=== PATIENT | female | born 1940 | race African-American/Black ===

== ENCOUNTER 2017-04-14 13:41 | Emergency (ER) | payer MEDICARE, OTHER ==
[2017-04-14] MEDS ORDERED: HYDRALAZINE HCL 50 MG TABLET PO ONE (14:30)
--- NOTE | 2017-04-14 14:37 | ER Document Report ---
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 It was 180s over 90s in the office. In addition, she has had intermittent tingling down bilateral legs for the past 3 years. She takes her blood pressure medications as prescribed and is due to take her afternoon hydralazine dose. Patient denies chest pain, shortness of breath, nausea, vomiting, back pain, abdominal pain, difficulty walking, injury, fevers, rash, headache, focal weakness or blurry vision. TRAVEL OUTSIDE OF THE [place] IN LAST 30 DAYS: No - Related Data Allergies/Adverse Reactions: No Known Allergies Allergy (Verified 09/26/13 09:14) Past Medical History - General Information source: Patient - Social History Smoking Status: Former Smoker Family History: Reviewed & Not Pertinent Patient has suicidal ideation: No Patient has homicidal ideation: No - Past Medical History Cardiac Medical History: Reports: Hx Coronary Artery Disease, Hx Heart Attack, Hx Hypercholesterolemia, Hx Hypertension Endocrine Medical History: Reports: Hx Diabetes Mellitus Type 2 Renal/ Medical History: Reports: Hx End Stage Renal Disease. Denies: Hx Peritoneal Dialysis Psychiatric Medical History: Denies: Hx Depression Past Surgical History: Reports: Hx Hysterectomy, Hx Orthopedic Surgery - cervical fusion - Immunizations Hx Diphtheria, Pertussis, Tetanus Vaccination: Yes Review of Systems - Review of Systems Notes: REVIEW OF SYSTEMS: CONSTITUTIONAL: -fevers, -chills EENT: -eye pain, -difficulty swallowing, -nasal congestion CARDIOVASCULAR: -chest pain, -syncope. RESPIRATORY: -cough, -SOB GASTROINTESTINAL: -abdominal pain, -nausea, -vomiting, -diarrhea GENITOURINARY: -dysuria, -hematuria MUSCULOSKELETAL: -back pain, -neck pain SKIN: -rash or skin lesions. HEMATOLOGIC: -easy bruising or bleeding. LYMPHATIC: -swollen, enlarged glands. NEUROLOGICAL: -altered mental status or loss of consciousness, -headache, + chronic tingling PSYCHIATRIC: -anxiety, -depression. ALL OTHER SYSTEMS REVIEWED AND NEGATIVE. Physical Exam - Notes Notes: PHYSICAL EXAMINATION: GENERAL: Well-appearing, well-nourished and in no acute distress. HEAD: Atraumatic, normocephalic. EYES: Pupils equal round and reactive to light, extraocular movements intact, sclera anicteric, conjunctiva are normal. ENT: nares patent, oropharynx clear without exudates. Moist mucous membranes. NECK: Normal range of motion, supple without lymphadenopathy LUNGS: Breath sounds clear to auscultation bilaterally and equal. No wheezes rales or rhonchi. HEART: Regular rate and rhythm without murmurs ABDOMEN: Soft, nontender, normoactive bowel sounds. No guarding, no rebound. No masses appreciated. EXTREMITIES: Strong distal pulses. 5/5 strength in all 4 extremities. No sensory changes. Normal range of motion, no pitting or edema. No cyanosis. NEUROLOGICAL: Cranial nerves grossly intact. Normal speech, normal gait. Normal sensory and motor exams. PSYCH: Normal mood, normal affect. SKIN: Warm, Dry, normal turgor, no rashes or lesions noted. Course - Re-evaluation Re-evalutation: Pt's blood work is unremarkable and is consistent with her known history of CKD. Blood pressure improved after she took her afternoon dose of hydralazine. She is strong distal pulses and no signs of DVT or acute arterial occlusion. She has had the tingling down both legs for the past 3 years and suspect this may be related to diabetic neuropathy. Instructed her to talk to her electromedical service engineer and primary care physician to discuss further blood pressure management and treatment for diabetic peripheral neuropathy. Given very strict return precautions and she understands. - Laboratory Result Diagrams: 04/14/17 14:30 04/14/17 14:30 Laboratory results interpreted by me: 04/14/17 04/14/17 14:30 14:30 WBC 2.9 L RBC 3.47 L Hgb 9.7 L Hct 28.6 L RDW 15.6 H BUN 80 H Creatinine 3.71 H Est GFR ( Amer) 14 L Est GFR (Non-Af Amer) 12 L Glucose 143 H Discharge - Discharge Clinical Impression: Diabetic neuropathy Qualifiers: Diabetes mellitus type: type 2 Diabetes mellitus complication detail: diabetic polyneuropathy Qualified Code(s): E11.42 - Type 2 diabetes mellitus with diabetic polyneuropathy Hypertension Qualifiers: Hypertension type: unspecified Qualified Code(s): I10 - Essential (primary) hypertension Condition: Stable Disposition: HOME, SELF-CARE Additional Instructions: There are no evidence of electrolyte abnormalities. Follow-up with your electromedical service engineer to discuss changes in your blood pressure medications and treatment for your diabetic neuropathy (nerve pain). HIGH BLOOD PRESSURE REQUIRING TREATMENT: Your blood pressure is high. This is called "hypertension." Your history and exam suggest that this is not a temporary problem. You need treatment of your blood pressure. If left untreated, high blood pressure greatly increases your risk of heart attack and stroke. Please don't ignore this problem. If you have blood pressure medicine but aren't using it regularly, start taking it again. Some simple things you can do to help are: Get some aerobic exercise for at least 20 minutes on a daily basis. (See your doctor before beginning any new exercise program.) Eat a low-fat diet. Lose excess weight. Avoid salty foods and avoid adding salt to any of the foods you eat. Avoid diet pills, decongestants, "energizing" herbs, and other medicines that elevate blood pressure. There are many different medicines that treat blood pressure. If your medication causes unpleasant side effects, call your doctor. There are others you can try. Treating hypertension is a life-long investment in your health. FOLLOW-UP CARE: If you have been referred to a physician for follow-up care, call the physician s office for an appointment as you were instructed or within the next two days. If you experience worsening or a significant change in your symptoms, notify the physician immediately or return to the Emergency Department at any time for re-evaluation. Neuropathy Your symptoms are due to neuropathy. Neuropathy is nerve damage. There are many causes, including diabetes, immune disease, alcohol, blood vessel disease, and vitamin deficiency. The usual symptoms are pain and numbness. Neuropathy can occur anywhere, but it's most likely in the "longest" nerves. That's why the feet are most often affected. Sometimes the nerve damage can heal. But if the symptoms have lasted more than a few months, the damage is permanent. To avoid further damage, treat your underlying health problems carefully. If you have diabetes, keep the blood sugar as normal as possible. Avoid alcohol. Treat high blood pressure and high cholesterol. Treating chronic pain can be a problem. Obviously, you don't want to become addicted to pain medicine. Work closely with your doctor on pain management. Your options include antiinflammatory medicine, anti seizure medicine, antidepressants, and pain clinic management. Contact the doctor if there is a significant change. Referrals: LAUREN GASTELUM MD [Primary Care Provider] - Follow up as needed SINA DOMINGUEZ MD [ACTIVE STAFF] - Follow up as needed
[2017-04-14 15:17] LABS: ABSOLUTE EOSINOPHILS # (AUTO) 0.1 10^3/uL (0.0-0.6); ABSOLUTE LYMPHOCYTES (AUTO) 0.5 10^3/uL (0.5-4.7); ABSOLUTE MONOCYTES (AUTO) 0.3 10^3/uL (0.1-1.4); BASOPHILS % (AUTO) 0.7 % (0-2); EOSINOPHILS % (AUTO) 3.2 % (0-6); HEMATOCRIT 28.6 % (36.0-47.0); HEMOGLOBIN 9.7 g/dL (12.0-15.5); LYMPHOCYTES % (AUTO) 18.1 % (13-45); MEAN CORPUSCULAR HEMOGLOBIN 27.9 pg (27.0-33.4); MEAN CORPUSCULAR HGB CONC 33.7 g/dL (32.0-36.0); MEAN CORPUSCULAR VOLUME 83 fl (80-97); PLATELET COUNT 238 10^3/uL (150-450); RED BLOOD COUNT 3.47 10^6/uL (3.72-5.28); RED CELL DISTRIBUTION WIDTH 15.6 % (11.5-14.0); TOTAL CELLS COUNTED % (AUTO) 100 %; WHITE BLOOD COUNT 2.9 10^3/uL (4.0-10.5)
[2017-04-14 15:31] LABS: ALANINE AMINOTRANSFERASE 25 U/L (9-52); ALBUMIN 4.1 g/dL (3.5-5.0); ALKALINE PHOSPHATASE 59 U/L (38-126); ANION GAP 13 (5-19); ASPARTATE AMINO TRANSFERASE 28 U/L (14-36); BILIRUBIN,DIRECT 0.3 mg/dL (0.0-0.4); BILIRUBIN,TOTAL 0.4 mg/dL (0.2-1.3); BLOOD UREA NITROGEN 80 mg/dL (7-20); CALCIUM 10.2 mg/dL (8.4-10.2); CARBON DIOXIDE 25 mmol/L (22-30); CHLORIDE 102 mmol/L (98-107); CREATINE KINASE 111 U/L (30-135); GLUCOSE 143 mg/dL (75-110); POTASSIUM 3.8 mmol/L (3.6-5.0); SODIUM 140.2 mmol/L (137-145); TOTAL PROTEIN 6.5 g/dL (6.3-8.2)
[2017-04-14 17:15] VITALS: BP 186/64
== END 2017-04-14 16:40 | disposition home or self-care (01) ==
LOC: ER 13:41
DX: E11.42 Type 2 diabetes mellitus with diabetic polyneuropathy (principal); E11.22 Type 2 diabetes mellitus with diabetic chronic kidney disease; I12.0 Hypertensive chronic kidney disease with stage 5 chronic kidney disease or end stage renal disease; N18.6 End stage renal disease; Z90.710 Acquired absence of both cervix and uterus; Z98.1 Arthrodesis status
CPT/HCPCS: 99284; 36415; 82550; 84443; 80053; 85025; A9270

== ENCOUNTER 2017-05-31 08:26 | Day surgery (SDC) | payer MEDICARE, OTHER ==
--- NOTE | 2017-05-25 09:34 | EKG REPORT ---
SEVERITY:- ABNORMAL ECG - SINUS RHYTHM NONSPECIFIC IVCD WITH LAD LEFT VENTRICULAR HYPERTROPHY : Confirmed by: Usama Cleary 25-May-2017 09:33:42
[2017-05-25 10:13] LABS: HEMATOCRIT 29.8 % (36.0-47.0); MEAN CORPUSCULAR HEMOGLOBIN 27.8 pg (27.0-33.4); MEAN CORPUSCULAR HGB CONC 33.6 g/dL (32.0-36.0); MEAN CORPUSCULAR VOLUME 83 fl (80-97); PLATELET COUNT 219 10^3/uL (150-450); RED CELL DISTRIBUTION WIDTH 15.9 % (11.5-14.0); WHITE BLOOD COUNT 2.7 10^3/uL (4.0-10.5)
[2017-05-25 10:31] LABS: ANION GAP 11 (5-19); BLOOD UREA NITROGEN 87 mg/dL (7-20); CALCIUM 9.9 mg/dL (8.4-10.2); CARBON DIOXIDE 28 mmol/L (22-30); CHLORIDE 99 mmol/L (98-107); GLUCOSE 104 mg/dL (75-110); SODIUM 137.9 mmol/L (137-145)
--- NOTE | 2017-05-25 10:54 | RADIOLOGY REPORT (SQ) ---
EXAM DESCRIPTION: CHEST PA/LATERAL COMPLETED DATE/TIME: 05/25/2017 10:30 am REASON FOR STUDY: PRE OP COMPARISON: Chest films 01/31/2008, 09/26/2013, 12/20/2015, 12/23/2015 EXAM PARAMETERS: NUMBER OF VIEWS: two views TECHNIQUE: Digital Frontal and Lateral radiographic views of the chest acquired. RADIATION DOSE: NA LIMITATIONS: none FINDINGS: LUNGS AND PLEURA: Minimal bandlike atelectasis left retrocardiac region. Lungs are otherwise well inflated and clear. No pleural effusion. No pneumothorax. MEDIASTINUM AND HILAR STRUCTURES: No masses or contour abnormalities. HEART AND VASCULAR STRUCTURES: Mild cardiomegaly. Calcified tortuous thoracic aorta BONES: No acute findings. HARDWARE: Lower cervical fusion hardware OTHER: No other significant finding. IMPRESSION: Minimal left basilar atelectasis TECHNICAL DOCUMENTATION: JOB ID: [id number] [employer]- All Rights Reserved Reading location - IP/workstation name: [email or web address]
[~2017-05-31 08:26] MED LIST: ACETAMINOPHEN 100 ML IV ONE; BACITRACIN INJ 50,000 UNIT VIAL ONE; CEFAZOLIN 1 GM/D5W RTU 1 GM/50 ML RTUPB IV PRN; EPHEDRINE SULFATE INJ 50 MG/1 ML AMPULE ONE; FENTANYL CITRATE INJ/PF 100 MCG/2 ML AMPUL ONE; HEPARIN SOD (PORCINE) 1,000 UNIT/ML 1 ML VIAL ONE; LACTATED RINGERS 1000 ML IV PRN; LIDOCAINE 0.5% INJ-PF (5 MG/ML) 50 ML SDV SUBCUT PRN; MIDAZOLAM 2 MG/2 ML INJ ONE; PROPOFOL INJ 200 MG/20 ML VIAL IV ONE
[2017-05-31 09:19] LABS: INTERNATIONAL RATION (INR) 0.94
[2017-05-31 09:20] LABS: PARTIAL THROMBOPLASTIN TIME 29.9 SEC (23.5-35.8)
[2017-05-31 09:29] LABS: POTASSIUM 3.7 mmol/L (3.6-5.0)
[2017-05-31] MEDS ORDERED: LIDOCAINE 2% INJ-PF (20 MG/ML) 2 ML AMPUL ONE (10:54)
[2017-05-31] MEDS ORDERED: METOCLOPRAMIDE HCL INJ/PF 10 MG/2 ML SDV ONE (10:54)
[2017-05-31] MEDS ORDERED: ONDANSETRON HCL INJ/PF 4 MG/2 ML SDV ONE (10:54)
[2017-05-31] MEDS ORDERED: PHENYLEPHRINE HCL INJ/PF 10 MG/1 ML SDV ONE (10:54)
[2017-05-31] MEDS ORDERED: GLYCOPYRROLATE INJ 0.4 MG/2 ML VIAL ONE (10:54)
[2017-05-31] MEDS ORDERED: SUCCINYLCHOLINE CHLORIDE INJ 200 MG/10 ML VIAL ONE (10:54)
[2017-05-31] MEDS ORDERED: ROCURONIUM BROMIDE INJ 50 MG/5 ML VIAL IV ONE (10:54)
[2017-05-31] MEDS ORDERED: NEOSTIGMINE METHYLSULFATE 10 MG/10 ML VIAL ONE (10:54)
[2017-05-31] MEDS: BUPIVACAINE HCL 0.25 % INJ/PF (2.5 MG/1 ML) 30 ML VIAL ONE ×2 (12:25→13:22)
[2017-05-31] MEDS: LIDOCAINE 0.5% INJ-PF (5 MG/ML) 50 ML SDV ONE ×2 (12:25→13:22)
[2017-05-31] MEDS ORDERED: FENTANYL CITRATE INJ/PF 100 MCG/2 ML AMPUL IV PRN ×3 (13:49)
[2017-05-31] MEDS ORDERED: ONDANSETRON HCL INJ/PF 4 MG/2 ML SDV IV PRN (13:49)
[2017-05-31] MEDS ORDERED: MEPERIDINE HCL/PF INJ 25 MG/1 ML DISP.SYRIN IV PRN (13:49)
[2017-05-31] MEDS ORDERED: PROMETHAZINE HCL INJ 25 MG/1 ML VIAL IV PRN ×2 (13:49)
[2017-05-31] MEDS ORDERED: DIPHENHYDRAMINE HCL 50 MG/ML VIAL IV PRN (13:49)
--- NOTE | 2017-05-31 14:04 | Discharge Summary ---
Discharge Summary (SDC) - Discharge Final Diagnosis: #1 chronic kidney disease stage IV. 2. Congestive cardiomyopathy. History of. 3. Hypertension. Date of Surgery: 05/31/17 Discharge Date: 05/31/17 Condition: Fair Treatment or Instructions: Discharge home [after recovery per ASU criteria]. Diet , [renal],as tolerated, when fully awake advance as tolerated. Activities within moderation encouraged. Follow up in my office by appointment in about [1 week]. Call for appointment. Leave wounds [covered], [keep clean and dry, until office visit in 1 week]. Hold of on school/work [until evaluation in office]. Meds per med rec. Percocet. May shower [in 48 hrs], [try to keep operated area as dry as possible]. Prescriptions: Oxycodone HCl/Acetaminophen [Percocet 5-325 mg Tablet] 1 tab PO ASDIR PRN #15 tab PRN Reason: Referrals: STANFORD MCGEE MD [Primary Care Provider] - Discharge Diet: Other (Comments) - Renal. Respiratory Treatments at Home: Deep Breathing/Coughing Discharge Activity: Activity As Tolerated Report the Following to Your Physician Immediately: Shortness of Breath, Unusual Bleeding
--- NOTE | 2017-05-31 14:14 | Operative Report ---
Operative Report DATE OF SURGERY: 05/31/17 PREOPERATIVE DIAGNOSIS: #1 chronic kidney disease stage IV. 2. Congestive cardiomyopathy. History of. 3. Hypertension. POSTOPERATIVE DIAGNOSIS: #1 chronic kidney disease stage IV. 2. Congestive cardiomyopathy. History of. 3. Hypertension. #4 ventral hernia. OPERATION: 1. Laparoscopic insertion of peritoneal dialysis catheter. 2. Repair of ventral hernia with mesh. SURGEON: GRZEGORZ GALLAGHER PATHOLOGY SPECIALIST: None. ANESTHESIA: GA TISSUE REMOVED OR ALTERED: Not applicable. COMPLICATIONS: Bleeding from rectus muscle which was controlled. ESTIMATED BLOOD LOSS: 10 mL. INTRAOPERATIVE FINDINGS: Somewhat unexpected finding of a ventral hernia in the previous lower midline incision. Mouth about 2.5 cm across. Very satisfactory repair with an 8 cm Ventralux mesh. Satisfactory appearing peritoneal cavity for hemodialysis. No discernible obvious adhesions. The peritoneal dialysis catheter optimally positioned with the coil well down in the pelvis, no kinking slightly to the right. Easy ingress of heparinized solution and ingress of heparinized solution. Bleeding was noted from the rectus sheath after insertion of the catheter. The external portion of the catheter was dislodged and the anterior rectus sheath incised. Muscular bleeding was controlled by cautery and by sutures. PROCEDURE: After obtaining informed consent and going over the procedure with the patient and her family, she was taken to the operating room, [she was] anesthetized and intubated. The abdomen was prepped and draped in the usual sterile fashion. After the universal timeout, in which it was verified that the patient received IV antibiotic, the procedure commenced. The topographical location for the peritoneal dialysis catheter was sketched by applying it to the anterior abdominal wall. The reference point was the pubic symphysis the coil of the catheter, just beneath this level. In this way the position for the cuffs and the external catheter exit were ascertained and marked. The catheter was now replaced in antibiotic containing solution. An entry into the abdomen was sketched just to the right of the midline and transversely in the epigastrium. Local anesthesia was infiltrated. A 1 cm, transverse incision was made with a [15 blade scalpel]. Dissection now proceeded to the medial aspect of the right rectus sheath. This was opened and the muscle gently reflected. The posterior rectus sheath and peritoneum were opened between hemostats and entry was gained to the peritoneal cavity. This allowed introduction of a 5 mm laparoscopic port. The abdomen was now insufflated with carbon dioxide up to a maximum pressure of 12 mm of mercury. The camera was inserted and a good view gained of the abdomen. Photographs were taken. Given the finding of a ventral hernia repair was then undertaken. Presence of this hernia will predictably make peritoneal dialysis fail. Repair is therefore indicated. Topographic location of the hernia was marked in respect to the laparoscopic findings. Local anesthesia infiltrated and the involved portion of the lower midline scar incised and dissection of subcutaneous tissues down to the hernia sac. The hernia sac was now dissected down to the fascial ring circumferentially. Sac was now dissected away from the fascial ring into the space just in front of the rectus sheath. This was dissected circumferentially for a distance of at least 3 cm. Meticulous hemostasis secured.. The sac itself was not violated. An 8 cm mesh was now inserted within this fascial margin, anchored using interrupted sutures of #1 PDS. The mesh was placed as flat as possible. The fascia was now closed using a continuous suture of #1 PDS placed half a centimeter, half a centimeter from the edge. Subcutaneous tissues closed using interrupted 3-0 PDS. Skin closed using a continuous suture of 4-0 Monocryl. Local anesthesia was now infiltrated and an incision made in respect to the curve of the catheter. A 1 cm transverse incision was made at this point and dissection proceeded down to the rectus sheath. This was opened and a Veress needle on a reducing sleeve were were now introduced through the rectus muscle and the manipulated down to about 4 cm inferior to the incision. The peritoneum was now entered and the Veress needle removed. The internal cannula was now placed under direct vision. A swan neck peritoneal dialysis catheter was now placed on a stylette. Great care was taken to keep the orientation in reference to the white line on the catheter. It was now inserted into the peritoneal cavity under direct vision, through the introducer. As the catheter entered the abdomen the stylette was slowly withdrawn allowing it to assume its normal orientation and shape within the peritoneal cavity. Both the stylet and introducer were removed so as to place the internal cuff about 3 cm from the entry point of the peritoneal cavity, and within the rectus sheath. This was verified with respect to the incision. The external curve of the catheter was allowed to form precisely at the level of the incision. Slightly more bleeding than normal was appreciated from the rectus. The rectus sheath was therefore open for another 2 cm, the skin also. This allowed inspection and control of the bleeding using cautery and sutures of 3-0 PDS. The catheter was then replaced his previous physician. Externally the catheter was affixed to a Kristy stylette which was now used to tunnel the catheter in the subcutaneous tissues to its exit site where it was now used to exit the skin. The catheter orientation and position and, particularly the 2 cuffs of the catheter were verified. Once this was done the external portion of the catheter was affixed to a Leur lock adapter and connected to a sterile IV tubing. This allowed introduction of 1 L of heparinized saline into the peritoneal cavity via the catheter. This occurred with brisk and free flow of fluid into the peritoneal cavity. Once the entire liter had been infused, the bag was now placed beneath the level of the patient and very satisfactory outflow was observed. With this in place, the camera and the catheter were removed and abdomen desufflated. The subcutaneous tissue in each incision was closed with interrupted 3-0 PDS. The skin in each incision was closed using interrupted and continuous sutures of 4-0 Monocryl. Once about 800 mils of the Infusaid had been passively removed from the abdomen, the catheter was flushed with 10 mL of heparinized solution and capped. The bio a patch was applied at the exit site. Benzoin was applied and Steri-Strips used to reinforce each of the wounds. It was also used to help anchor the Biopatch. It was also used to anchor the main catheter so that any external pressure would not dislodge the catheter. Dry gauze and tape applied and the procedure concluded.
[2017-05-31] MEDS ORDERED: FENTANYL CITRATE INJ/PF 100 MCG/2 ML AMPUL ONE (14:51)
[2017-05-31] MEDS ORDERED: OXYCODONE-ACETAMINOPHEN 5-325 MG TABLET ONE (15:43)
[2017-05-31] MEDS ORDERED: OXYCODONE-ACETAMINOPHEN 5-325 MG TABLET PO PRN (20:48)
[2017-05-31] MEDS ORDERED: ALPRAZOLAM 0.5 MG TABLET PO PRN (22:26)
[2017-05-31] MEDS ORDERED: GLUCAGON,HUMAN RECOMB 1 MG INJ IM PRN (22:33)
[2017-05-31] MEDS ORDERED: DEXTROSE 50%-WATER SYRINGE 25 GM/50 ML DOSE IV PRN (22:33)
[2017-05-31] MEDS ORDERED: INSULIN LISPRO 100 UNIT/ML 3 ML VIAL SUBCUT PRN (22:33)
[2017-05-31] MEDS ORDERED: DEXTROSE 50%-WATER SYRINGE 12.5 GM/25 ML DOSE IV PRN (22:33)
[2017-05-31] MEDS ORDERED: DEXTROSE 40% GEL 15 GM TUBE X 2 PO PRN (22:33)
[2017-05-31] MEDS ORDERED: DEXTROSE 40% GEL 15 GM TUBE PO PRN (22:33)
[2017-05-31] MEDS: HYDRALAZINE HCL 25 MG TABLET PO SCH (22:42)
[2017-05-31] MEDS: RAMIPRIL 10 MG CAPSULE PO SCH (22:55)
[2017-06-01] MEDS: GABAPENTIN 100 MG CAPSULE PO SCH ×2 (03:34→06:03)
[2017-06-01] MEDS: HYDRALAZINE HCL 25 MG TABLET PO SCH (06:03)
[2017-06-01] MEDS ORDERED: HUM INSULIN NPH/REG INSULIN HM 100 UNIT/1 ML 3 ML SUBCUT SCH (08:00)
[2017-06-01 08:30] VITALS: BP 170/70
[2017-06-01] MEDS: RAMIPRIL 10 MG CAPSULE PO SCH (08:50)
[2017-06-01] MEDS ORDERED: IRON POLYSACCHARIDES COMPLEX 150 MG CAPSULE PO SCH (10:00)
[2017-06-01] MEDS ORDERED: PARICALCITOL 1 MCG CAPSULE PO SCH (10:00)
[2017-06-01] MEDS ORDERED: SODIUM BICARBONATE 650 MG TABLET PO SCH (10:00)
[2017-06-01] MEDS ORDERED: LANSOPRAZOLE 30 MG TAB.RAP.DR PO SCH (10:00)
[2017-06-01] MEDS ORDERED: ISOSORBIDE MONONITRATE 30 MG TAB.ER.24H PO SCH (10:00)
[2017-06-01] MEDS ORDERED: CLOPIDOGREL BISULFATE 75 MG TABLET PO SCH (10:00)
== END 2017-06-01 09:20 | disposition home or self-care (01) ==
LOC: OROUT 08:26 → 4N 18:47 → OROUT 06-01 09:20
PROVIDERS: ATTEND Surgery
PROC: 0WHG43Z Insertion of Infusion Device into Peritoneal Cavity, Percutaneous Endoscopic Approach (ICD-10-PCS; 2017-05-31)
PROC: 0WUF4JZ Supplement Abdominal Wall with Synthetic Substitute, Percutaneous Endoscopic Approach (ICD-10-PCS; principal; 2017-05-31 09:00)
DX: I12.0 Hypertensive chronic kidney disease with stage 5 chronic kidney disease or end stage renal disease (principal); N18.6 End stage renal disease; K43.9 Ventral hernia without obstruction or gangrene; I25.10 Atherosclerotic heart disease of native coronary artery without angina pectoris; E11.22 Type 2 diabetes mellitus with diabetic chronic kidney disease; E11.40 Type 2 diabetes mellitus with diabetic neuropathy, unspecified; I42.0 Dilated cardiomyopathy; M10.9 Gout, unspecified; E34.2 Ectopic hormone secretion, not elsewhere classified; E87.2 Acidosis; M19.90 Unspecified osteoarthritis, unspecified site; E55.9 Vitamin D deficiency, unspecified; F17.210 Nicotine dependence, cigarettes, uncomplicated; Z79.51 Long term (current) use of inhaled steroids; Z79.899 Other long term (current) drug therapy; Z79.4 Long term (current) use of insulin
CPT/HCPCS: 93005; 36415 ×2; 82962; 82947; 84132; 85027; 85610; 85730; 80048; 71046; 93010; 49652; 49324; J2250; J3490 ×4; J0690; A9270 ×6; J3010; J1644; J2765; J2370; J0330; J2405; J2704; J1642; J0131; 790

== ENCOUNTER 2018-12-11 11:00 | Day surgery (SDC) | payer MEDICARE, OTHER ==
[~2018-12-11 11:00] MED LIST changes: -ACETAMINOPHEN 100 ML IV ONE; -BACITRACIN INJ 50,000 UNIT VIAL ONE; +BUPIVACAINE HCL 0.25 % INJ/PF (2.5 MG/1 ML) 30 ML VIAL ONE; -CEFAZOLIN 1 GM/D5W RTU 1 GM/50 ML RTUPB IV PRN; +CEFAZOLIN SODIUM 1 GM in DEXTROSE 5%-WATER 50 ML IV PRN; -EPHEDRINE SULFATE INJ 50 MG/1 ML AMPULE ONE; -HEPARIN SOD (PORCINE) 1,000 UNIT/ML 1 ML VIAL ONE; -LACTATED RINGERS 1000 ML IV PRN; +LIDOCAINE 0.5% INJ-PF (5 MG/ML) 50 ML SDV ONE; -LIDOCAINE 0.5% INJ-PF (5 MG/ML) 50 ML SDV SUBCUT PRN; -MIDAZOLAM 2 MG/2 ML INJ ONE
[2018-12-11 12:24] LABS: HEMATOCRIT 24.7 % (36.0-47.0); HEMOGLOBIN 8.3 g/dL (12.0-15.5); MEAN CORPUSCULAR HEMOGLOBIN 28.2 pg (27.0-33.4); MEAN CORPUSCULAR HGB CONC 33.5 g/dL (32.0-36.0); MEAN CORPUSCULAR VOLUME 84 fl (80-97); PLATELET COUNT 252 10^3/uL (150-450); RED BLOOD COUNT 2.93 10^6/uL (3.72-5.28); RED CELL DISTRIBUTION WIDTH 17.7 % (11.5-14.0); WHITE BLOOD COUNT 4.1 10^3/uL (4.0-10.5)
[2018-12-11 12:44] LABS: ANION GAP 11 (5-19); BLOOD UREA NITROGEN 100 mg/dL (7-20); CALCIUM 10.2 mg/dL (8.4-10.2); CARBON DIOXIDE 25 mmol/L (22-30); CHLORIDE 98 mmol/L (98-107); GLUCOSE 116 mg/dL (75-110); POTASSIUM 3.8 mmol/L (3.6-5.0)
[2018-12-11] MEDS ORDERED: FENTANYL CITRATE INJ/PF 100 MCG/2 ML AMPUL ONE (13:52)
[2018-12-11] MEDS ORDERED: MIDAZOLAM 2 MG/2 ML INJ ONE (13:53)
[2018-12-11] MEDS ORDERED: PROPOFOL INJ 200 MG/20 ML VIAL IV ONE (13:53)
[2018-12-11] MEDS ORDERED: PROMETHAZINE HCL INJ 25 MG/1 ML VIAL IV PRN ×2 (14:15)
[2018-12-11] MEDS ORDERED: FENTANYL CITRATE INJ/PF 100 MCG/2 ML AMPUL IV PRN ×3 (14:15)
[2018-12-11] MEDS ORDERED: DIPHENHYDRAMINE HCL 50 MG/ML VIAL IV PRN (14:15)
[2018-12-11] MEDS ORDERED: MEPERIDINE HCL/PF INJ 25 MG/1 ML DISP.SYRIN IV PRN (14:15)
[2018-12-11] MEDS ORDERED: OXYCODONE-ACETAMINOPHEN 5-325 MG TABLET PO PRN ×2 (14:15)
[2018-12-11] MEDS ORDERED: MORPHINE SULFATE 10 MG/ML INJ IV PRN (14:15)
[2018-12-11] MEDS ORDERED: ONDANSETRON HCL INJ/PF 4 MG/2 ML SDV IV PRN (14:15)
--- NOTE | 2018-12-11 15:25 | Discharge Summary ---
Discharge Summary (SDC) - Discharge Final Diagnosis: #[address] 2. End-stage renal disease. #3 diabetes mellitus type 2. Date of Surgery: 12/11/18 Discharge Date: 12/11/18 Condition: Fair Treatment or Instructions: Discharge home [after recovery per ASU criteria]. Diet , [renal],as tolerated, when fully awake advance as tolerated. Activities within moderation encouraged. Follow up in my office by appointment in about [1 week]. Call for appointment. Leave wounds [covered], [keep clean and dry, until office visit in 1 week]. Hold of on school/work [until evaluation in office]. Meds per med rec. Percocet. May shower [in 48 hrs], [try to keep operated area as dry as possible]. Prescriptions: Oxycodone HCl/Acetaminophen [Percocet 5-325 mg Tablet] 1 tab PO ASDIR PRN #15 tab PRN Reason: Referrals: STANFORD MCGEE MD [Primary Care Provider] -
--- NOTE | 2018-12-11 16:32 | Operative Report ---
Operative Report DATE OF SURGERY: 12/11/18 PREOPERATIVE DIAGNOSIS: #[address]. 2. Chronic kidney disease stage V. 3. Hypertension. POSTOPERATIVE DIAGNOSIS: #[address] Post removal. 2. Chronic kidney disease stage V. 3. Hypertension. OPERATION: Removal of peritoneal dialysis catheter. SURGEON: GRZEGORZ GALLAGHER ENROBER TENDER: None. ANESTHESIA: LMAC TISSUE REMOVED OR ALTERED: Not applicable. COMPLICATIONS: None. ESTIMATED BLOOD LOSS: 5 mL. INTRAOPERATIVE FINDINGS: Of a well founded peritoneal dialysis catheter. Both cuffs were nicely healed in. There was a tendency towards excessive bleeding and probably a branch of the inferior epigastric artery was encountered. This was suture-ligated and controlled. Number of small bleeding points were also cauterized. A portion of Surgicel was left in the wound. The catheter was removed in its entirety and discarded. PROCEDURE: The patient was taken to the operating room after verifying consent. She was positioned supine and sedated by the anesthesia team. The catheter and the abdomen were prepared with Betadine solution and draped out with sterile linen. After the universal timeout local anesthesia was generously infiltrated. The incision made through the previous scar and dissection proceeded through the subcutaneous tissues to the catheter. The catheter was put on slight traction and the superficial cuff dissected away using cautery. The catheter was divided and the external portion removed and discarded. The internal portion was now tracks to the internal cuff. This may this necessitated transection of the rectus fascia and rectus muscle longitudinally. During this process a branch of the inferior epigastric was encountered and was suture-ligated and controlled. The cuff of the catheter was dissected away from the surrounding tissues and the catheter removed in its entirety and discarded. A fair amount of time was taken and hemostasis as there were a number of pinpoint this. These were controlled with cautery. A small perfusion portion of Surgicel was left in the wound. The rectus fascia was sutured using interrupted 3-0 PDS. The subcutaneous tissue was closed with interrupted 3-0 PDS. The skin closed using interrupted vertical mattress sutures of 3-0 PDS. Dressings applied and the procedure concluded.
--- NOTE | 2018-12-11 16:55 | EKG REPORT ---
SEVERITY:- ABNORMAL ECG - SINUS RHYTHM NONSPECIFIC IVCD WITH LAD LEFT VENTRICULAR HYPERTROPHY : Confirmed by: Christine Ascencio MD 11-Dec-2018 16:53:53
[2018-12-11 17:22] VITALS: BP 170/68
== END 2018-12-11 17:30 | disposition home or self-care (01) ==
LOC: OROUT 11:00
PROVIDERS: ATTEND Surgery
DX: T85.611A Breakdown (mechanical) of intraperitoneal dialysis catheter, initial encounter (principal); Y83.2 Surgical operation with anastomosis, bypass or graft as the cause of abnormal reaction of the patient, or of later complication, without mention of misadventure at the time of the procedure; I12.0 Hypertensive chronic kidney disease with stage 5 chronic kidney disease or end stage renal disease; E11.22 Type 2 diabetes mellitus with diabetic chronic kidney disease; N18.6 End stage renal disease; Z99.2 Dependence on renal dialysis; E34.2 Ectopic hormone secretion, not elsewhere classified; E87.2 Acidosis; E11.40 Type 2 diabetes mellitus with diabetic neuropathy, unspecified; I25.10 Atherosclerotic heart disease of native coronary artery without angina pectoris; Z79.899 Other long term (current) drug therapy
CPT/HCPCS: 36415; 85027; 80048; 93005; 93010; 49422; J2250; J0690; J3010; J3490; J7060; J2704; 700